=== PATIENT | female | born 1965 | race Caucasian/White ===

== ENCOUNTER 2016-09-12 17:01 | Emergency (ER) | payer OTHER, MEDICARE ==
[~2016-09-12] VITALS: Ht 170.2 cm; Wt 70.3 kg
[~2016-09-12 17:01] MED LIST: AMOXICILLIN500 M3 PO; AMOXIL500 MG PO; AUGMENTIN 875-1 EACH PO; BACTRIM DS TAB1 EACH PO; ERYTHROMYCIN1 GM OPH; KEFLEX 250MG C250 MG PO; PREDNISONE 20MG20 MG PO
--- NOTE | 2016-09-12 18:01 | ED HAND/WRIST INJURY COMPLAINT ---
History of Present Illness General Chief Complaint: Hand or Wrist Injury Stated Complaint: FINGER INJURY EAT AND TOOTH PAIN Vital Signs & Intake/Output Vital Signs & Intake/Output Vital Signs Date Time Temp Pulse Resp B/P Pulse O2 O2 Flow FiO2 Ox Delivery Rate 09/12 1709 98.6 75 20 130/84 96 Room Air Allergies Coded Allergies: NO KNOWN ALLERGIES (09/12/16) Reconcile Medications Amoxicillin 500 MG TABLET 1 TAB PO TID CELULITIS Amoxicillin (Amoxil) 500 MG CAP 1 TAB PO BID CELLULITIS Amoxicillin/Potassium Clav (Augmentin 875-125 Tablet) 875 MG-125 MG TABLET 1 TAB PO BID periorbital cellulitis Cephalexin (Keflex 250MG Cap) 250 MG CAPSULE 1 CAP PO TID CELLULITIS Erythromycin Base (Erythromycin) 5 MG/GRAM (0.5 %) OINT...G. 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 ALSO HERE FOR R DENTAL PAIN WHICH RADIATES INTO R EAR. ALSO COMPLAINS OF PAINFUL BUMP TO RT WRIST X 2-3 DAYS S/P BUMPING IT ON THE METAL FRAME OF HER BED. MEDICATED WITH TYLENOL AT TRIAGE PER PT REQUEST. 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
--- NOTE | 2016-09-12 18:15 | ED GENERAL ADULT ---
History of Present Illness General Chief Complaint: Hand or Wrist Injury Stated Complaint: FINGER INJURY EAT AND TOOTH PAIN Source: patient Exam Limitations: no limitations Vital Signs & Intake/Output Vital Signs & Intake/Output Vital Signs Date Time Temp Pulse Resp B/P Pulse O2 O2 Flow FiO2 Ox Delivery Rate 09/12 2007 98.6 76 18 124/73 97 Room Air 09/12 1913 Room Air 09/12 1709 98.6 75 20 130/84 96 Room Air ED Intake and Output 09/13 0000 09/12 1200 Intake Total 0 Output Total Balance 0 Intake, Oral 0 Patient 155 lb Weight Allergies Coded Allergies: NO KNOWN ALLERGIES (09/12/16) Reconcile Medications Amoxicillin 500 MG TABLET 1 TAB PO TID CELULITIS Amoxicillin (Amoxil) 500 MG CAP 1 TAB PO BID CELLULITIS Amoxicillin/Potassium Clav (Augmentin 875-125 Tablet) 875 MG-125 MG TABLET 1 TAB PO BID periorbital cellulitis Cephalexin (Keflex 250MG Cap) 250 MG CAPSULE 1 CAP PO TID CELLULITIS Erythromycin Base (Erythromycin) 5 MG/GRAM (0.5 %) OINT...G. 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 ALSO HERE FOR R DENTAL PAIN WHICH RADIATES INTO R EAR. ALSO COMPLAINS OF PAINFUL BUMP TO RT WRIST X 2-3 DAYS S/P BUMPING IT ON THE METAL FRAME OF HER BED. MEDICATED WITH TYLENOL AT TRIAGE PER PT REQUEST. Triage Nurses Notes Reviewed? yes Onset: Just prior to arrival Duration: day(s): (1) Timing: no prior history Injury Environment: home Severity: moderate Severity Numbers: 7 Modifying Factors: Improves With: immobilization. Worsens With: movement. HPI: Patient is a 51-year-old female presenting to the emergency Department chief complaint of left ring finger pain, deformity after getting it twisted in her dogs leash prior to arrival. Pain is moderate achy throbbing worsened range of motion and palpation. Also reporting right wrist pain since the injury as well. Denies any actual falls. She reports that her right wrist twisted. Pain is moderate achy throbbing. Currently 7 out of 10. Nonradiating. Worse with movement. Denies taking anything prior to arrival to help with pain. Denies numbness or tingling. Denies nausea vomiting fevers or chills chest pain or shortness of breath. Also reporting exacerbation of chronic dental pain. She is due to have several teeth removed. Denies fevers or chills. No swelling in the mouth. (ZURI LAURENT) Past History Travel History Traveled to [place] past 21 day No Medical History Any Pertinent Medical History? 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 No (ZURI LAURENT) Review of Systems Review of Systems Constitutional: Reports: no symptoms. Comments Review of systems: See HPI, All other systems negative. Constitutional, no chills fever or weight loss HEENT: No visual changes no sore throat no congestion Cardiovascular: No chest pain ,palpitation , orthopnea or ankle swelling Skin, no jaundice no rashes Respiratory: No dyspnea cough sputum or hemoptysis GI: No nausea no vomiting Muscle skeletal: no back pain, no neck pain, Neurologic: No numbness no confusion Psych: No stress anxiety Immunology: No splenectomy or history of AIDS (ZURI LAURENT) Physical Exam Physical Exam General Appearance: well developed/nourished, no apparent distress, alert, awake , comfortable Comments: Well-developed well-nourished person in no acute distress HEENT: Pupils equally round and reactive to light and accommodation. Nose is atraumatic. Pharynx normal. No swelling or edema. Poor dentition. No obvious signs of dental infection. No gum erythema. Neck: Supple, no lymphadenopathy, normal range of motion without pain or tenderness Back: Nontender, no CVA tenderness. Full range of motion Cardiovascular: normal JVP Respiratory: No respiratory distress. Extremity: Obvious deformity to left ring finger. Tender to palpation throughout the entire finger. Limited range of motion to the left ring finger secondary to pain. Capillary refill is intact in upper extremities bilaterally. Pain to palpation over the distal radius on the right. No snuffbox tenderness bilaterally. Radial pulses are 2+ bilaterally. Neuro: Alert oriented x3, motor sensory normal Skin: No appreciable rash on exposed skin, skin is warm and dry. Psych: Mood and affect is normal, memory and judgment is normal. Core Measures ACS in differential dx? No CVA/TIA Diagnosis: No Severe Sepsis Present: No Septic Shock Present: No (MANNIE SILVA,ZURI) Progress Differential Diagnoses I considered the following diagnoses in my evaluation of the patient: Finger fracture, finger dislocation, contusion, chronic dental pain, wrist pain Plan of Care: Orders Procedure Date/time Status XRY-FINGERS, LEFT 09/12 1911 Active Diagnostic Imaging: Viewed by Me: Radiology Read. Discussed w/RAD: Radiology Read. Radiology Impression: PATIENT: JOSE MANUEL MEJIA PRESENT AGE: 51 PATIENT ACCOUNT NO: [id number] : 66 LOCATION: [facility] ORDERING PHYSICIAN: ZURI SILVA SERVICE DATE: 09/12/16 EXAM TYPE: RAD - XRY-FINGERS, LEFT EXAMINATION: XR FINGER, LEFT CLINICAL INFORMATION: Status post reduction COMPARISON: X-ray left finger also dated 09/12/2016. TECHNIQUE: Three views of the left fourth finger. FINDINGS: There has been interval reduction of the previously seen dislocation of the PIP joint. Improved and normal alignment. A subtle ossific density noted dorsal to the base of the middle phalanx may represent a subtle avulsion fracture. IMPRESSION: Interval reduction PIP joint left fourth finger. Normal alignment. Subtle tiny avulsion fracture suspected dorsal aspect base of the middle phalanx fourth finger., PATIENT: JOSE MANUEL MEJIA PRESENT AGE: 51 PATIENT ACCOUNT NO: [id number] : 66 LOCATION: [facility] ORDERING PHYSICIAN: ZURI SILVA SERVICE DATE: 09/12/16 EXAM TYPE: RAD - XRY-FINGERS, LEFT; XRY-WRIST COMPLETE-RIGHT EXAMINATION: XR FINGER, LEFT X-RAY WRIST, RIGHT CLINICAL INFORMATION: Evaluate for fracture or dislocation. COMPARISON: None TECHNIQUE: 3 views of the left fourth finger and 4 views of the right wrist FINDINGS: LEFT FOURTH FINGER There is complete dislocation noted at the PIP joint fifth finger with the base of the middle phalanx anterior to the head of the proximal phalanx. No obvious fracture identified. Subcortical cystic changes noted in the triquetrum. Degenerative changes first CMC joint. RIGHT WRIST Normal bony mineralization. No evidence of acute fracture or dislocation. Degenerative changes first CMC joint with osteophyte formation and subcortical cystic change. IMPRESSION: 1. Complete dislocation PIP joint fourth finger. 2. No acute osseous abnormality right wrist. Degenerative changes with subcortical cyst formation first CMC joint. Initial ED EKG: none Comments: Spoke with Dr. Grove who will follow-up with the patient outpatient. Patient educated on keeping the splint on. She will return for worsening symptoms or concerns. (ZURI LAURENT) Departure Departure Time of Disposition: 1944 Disposition: HOME OR SELF CARE Condition: Stable Clinical Impression Primary Impression: Finger fracture Qualifiers: Encounter type: initial encounter Finger: unspecified finger Fracture type: closed Phalanx: distal Fracture alignment: nondisplaced Qualified Code: S62.669A - Nondisplaced fracture of distal phalanx of unspecified finger, initial encounter for closed fracture Secondary Impressions: Finger dislocation Qualifiers: Encounter type: initial encounter Qualified Code: S63.259A - Unspecified dislocation of unspecified finger, initial encounter Pain, dental Referrals: PATIENT HAS NO PRIMARY CARE DR (PCP/Family) HENRIETTA GROVE MD Additional Instructions: Follow-up with Dr. Grove. Wear splint until follow-up. Take tramadol as prescribed. Rest ice and elevate the finger. Return for worsening symptoms or concerns. Do not take the splint off no matter what. Departure Forms: Customer Survey General Discharge Information Prescriptions: Current Visit Scripts Tramadol HCl 1 TAB PO BIDP PRN PAIN #10 TAB (ZURI LAURENT) PA/CRO Co-Sign Statement Statement: ED Attending supervision documentation- [] I saw and evaluated the patient. I have also reviewed all the pertinent lab results and diagnostic results. I agree with the findings and the plan of care as documented in the PA's/CRO's documentation. [x] I have reviewed the ED Record and agree with the PA's/CRO's documentation. [] Additions or exceptions (if any) to the PAs/CRO's note and plan are summarized below: [] (DARY WONG,MARLON Ramachandran) Procedures Splinting Location: left ring finger Manual Alignment Performed: Yes Pre-Made Type: metal Splint: finger Splint Applied By: splint applied by me Pre-Proc Neuro Vasc Exam: normal Post-Proc Neuro Vasc Exam: normal Progress: Patient tolerated procedure well. Joint Reduction Joint Reduction Site: left ring finger Conscious Sedation: performed by me Reduction Attempts: 1 Pre-Procedure NV Exam: Yes Post-Procedure NV Exam: Yes Post Joint Reduction Film: joint reduced Progress: Digital block performed on left ring finger, 4 mL of 1% lidocaine without epi to anesthetize the area. Gentle traction until reduction complete. (ZURI LAURENT) Critical Care Note Critical Care Note Critical Care Time: non-applicable (ZURI LAURENT)
--- NOTE | 2016-09-12 18:55 | RADIOLOGY REPORT ---
EXAMINATION: XR FINGER, LEFT X-RAY WRIST, RIGHT CLINICAL INFORMATION: Evaluate for fracture or dislocation. COMPARISON: None TECHNIQUE: 3 views of the left fourth finger and 4 views of the right wrist FINDINGS: LEFT FOURTH FINGER There is complete dislocation noted at the PIP joint fifth finger with the base of the middle phalanx anterior to the head of the proximal phalanx. No obvious fracture identified. Subcortical cystic changes noted in the triquetrum. Degenerative changes first CMC joint. RIGHT WRIST Normal bony mineralization. No evidence of acute fracture or dislocation. Degenerative changes first CMC joint with osteophyte formation and subcortical cystic change. IMPRESSION: 1. Complete dislocation PIP joint fourth finger. 2. No acute osseous abnormality right wrist. Degenerative changes with subcortical cyst formation first CMC joint.
[2016-09-12] MEDS ORDERED: TRAMADOL HCL50 M1 PO (19:47)
--- NOTE | 2016-09-12 19:54 | RADIOLOGY REPORT ---
EXAMINATION: XR FINGER, LEFT CLINICAL INFORMATION: Status post reduction COMPARISON: X-ray left finger also dated 09/12/2016. TECHNIQUE: Three views of the left fourth finger. FINDINGS: There has been interval reduction of the previously seen dislocation of the PIP joint. Improved and normal alignment. A subtle ossific density noted dorsal to the base of the middle phalanx may represent a subtle avulsion fracture. IMPRESSION: Interval reduction PIP joint left fourth finger. Normal alignment. Subtle tiny avulsion fracture suspected dorsal aspect base of the middle phalanx fourth finger.
[2016-09-12 20:08] VITALS: BP 124/73
== END 2016-09-12 20:09 ==
LOC: ERH 17:01
DX: S62.625A Displaced fracture of middle phalanx of left ring finger, initial encounter for closed fracture (principal); S63.255A Unspecified dislocation of left ring finger, initial encounter; X58.XXXA Exposure to other specified factors, initial encounter
CPT/HCPCS: 73110-RT; 73140-LT; 96372; J1885

== ENCOUNTER 2017-09-12 22:46 | Emergency (ER) | payer OTHER ==
[~2017-09-12 22:46] MED LIST changes: +KEFLEX500 M1 PO; +NAPROSYN500 M1 PO; +TRAMADOL HCL50 M1 PO
[2017-09-12 22:52] VITALS: BP 146/82
[2017-09-13] MEDS ORDERED: IBUPROFEN600 M1 PO (00:23)
[2017-09-13] MEDS ORDERED: PERCOCET 5-3251 EACH PO (00:23)
--- NOTE | 2017-09-13 00:25 | ED UPPER/LOWER EXTREMITY COMPL ---
History of Present Illness General Chief Complaint: Lower Extremity Problems Stated Complaint: "FOR VERICOSE VEIN ITS ACTING UP" Source: patient, old records, friend Exam Limitations: no limitations Vital Signs & Intake/Output Vital Signs & Intake/Output Vital Signs Date Time Temp Pulse Resp B/P B/P Pulse O2 O2 Flow FiO2 Mean Ox Delivery Rate 09/122 98.3 78 20 146/82 96 ED Intake and Output 09/13 0000 09/12 1200 Intake Total Output Total Balance Patient 155 lb Weight Allergies Coded Allergies: NO KNOWN ALLERGIES (09/12/16) Reconcile Medications Cephalexin (Keflex) 500 MG CAPSULE 1 CAP PO TID INFECTION Ibuprofen 600 MG TABLET 1 TAB PO Q6PRN PRN pain with food Naproxen (Naprosyn) 500 MG TABLET 1 TAB PO BID PRN PAIN Oxycodone HCl/Acetaminophen (Percocet 5-325 MG Tablet) 5 MG-325 MG TABLET 1 TAB PO Q6P PRN severe pain Core Measure Meds Pre-Hospital antibiotics Triage Note: PER PT "BULGING VARICOSE VEIN TO RT UPPER THIGH' PER PT RED AND BURNING Triage Nurses Notes Reviewed? yes Onset: Last week Duration: day(s):, constant, continues in ED Timing: recent history Severity: moderate, severe Pain/Injury Location: Right: Thigh. Modifying Factors: Improves With: immobilization, pain medication, rest. Worsens With: jarring. Associated Symptoms: swelling, redness, GCS 15 since LMP (ages 10-50): post menopausal : No Patient currently breastfeeds: No HPI: One week prior to admission patient complains of increasing redness sharp pain to right thigh varicose veins. She's been seen and prescribed cephalexin and Naprosyn with continued pain. She reports having diarrhea since being on the cephalexin improved with over-the -counter medication. She denies fever chills nausea vomiting diarrhea abdominal pain chest pain shortness breath headache dysuria bleeding. Past History Travel History Traveled to [place] past 21 day No Medical History Any Pertinent Medical History? 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 No Review of Systems Review of Systems Constitutional: Reports: no symptoms. EENTM: Reports: no symptoms. Respiratory: Reports: no symptoms. Cardiovascular: Reports: no symptoms. Gastrointestinal/Abdominal: Reports: no symptoms. Genitourinary: Reports: no symptoms. Musculoskeletal: Reports: see HPI. Skin: Reports: see HPI. Neurological/Psychological: Reports: no symptoms. Hematologic/Endocrine: Reports: no symptoms. Immunological: Reports: no symptoms. All Other Systems: Reviewed and Negative Physical Exam Physical Exam General Appearance: well developed/nourished, alert, awake, anxious, mild distress Head: atraumatic Eyes: Bilateral: PERRL, EOMI. Ears, Nose, Throat: normal pharynx, normal ENT inspection, hearing grossly normal Neck: normal inspection, supple Cardiovascular/Respiratory: regular rate/rhythm Peripheral Pulses: 4+ carotid (R), 4+ carotid (L) Back: normal inspection, normal range of motion, no vertebral tenderness Shoulder Left: normal range of motion, normal inspection Shoulder Right: normal range of motion, normal inspection Elbow Left: normal range of motion, normal inspection Elbow Right: normal range of motion, normal inspection Hand Left: normal inspection, normal range of motion Hand Right: normal inspection, normal range of motion Upper Extremity Reflexes: 2+: bicep (R), bicep (L). Leg Left: normal range of motion, varicose veins Leg Right: normal range of motion, erythema overlying varicose veins of thigh with tenderness Hip Left: normal range of motion, normal inspection Hip Right: normal range of motion, normal inspection Knee Left: normal range of motion, normal inspection Knee Right: normal range of motion, normal inspection Foot Left: normal inspection, normal range of motion Foot Right: normal inspection, normal range of motion Lower Extremity Reflexes: 2+: knee (R), knee (L). Neurologic/Tendon: normal sensation, normal motor functions, normal tendon functions Skin: intact, warm/dry, rash Lymphatic: no anterior cervical anant Progress Differential Diagnosis: superficial thrombophlebitis, varicose vein discomfort Plan of Care: Current Medications Sig/Damien Start time Last Medication Dose Stop Time Status Admin Ibuprofen 600 MG ONCE ONE 09/13 29 AC (Motrin) 09/13 30 Oxycodone/ 1 TAB ONCE ONE 09/13 29 AC Acetaminophen 09/13 30 (Percocet) Departure Departure Time of Disposition: 21 Disposition: HOME OR SELF CARE Condition: Stable Clinical Impression Primary Impression: Varicose veins of leg with pain Secondary Impressions: Superficial thrombophlebitis of right leg Referrals: Unknown (PCP/Family) Additional Instructions: Decrease cephalexin to 2 times a day Departure Forms: Customer Survey General Discharge Information Prescriptions: Current Visit Scripts Ibuprofen 1 TAB PO Q6PRN PRN pain #50 TAB with food Oxycodone HCl/Acetaminophen (Percocet 5-325 MG Tablet) 1 TAB PO Q6P PRN severe pain #15 TAB
== END 2017-09-13 00:32 ==
LOC: ERH 22:46
DX: I83.011 Varicose veins of right lower extremity with ulcer of thigh (principal); I80.01 Phlebitis and thrombophlebitis of superficial vessels of right lower extremity

== ENCOUNTER → 2017-09-25 | Day surgery (SDC) | payer OTHER, MEDICARE ==
[~2017-09-25] VITALS: Ht 170.2 cm; Wt 61.7 kg
[~2017-09-25] MED LIST changes: +IBUPROFEN600 M1 PO; +PERCOCET 5-3251 EACH PO
--- NOTE | 2017-09-25 09:08 | Operative Report ---
Operative/Inv Procedure Report Surgery Date: 09/25/17 Name of Procedure: Excision left buttocks lipoma, 14 x 11 cm, superficial Pre-Operative Diagnosis: Lipoma Post-Operative Diagnosis: Lipoma Estimated Blood Loss: scant Surgeon/Shell Worker: Sammy White MD Anesthesia: local monitored anesthesi Drains: None Specimens: Lipoma Operative Indication: 52-year-old woman with growing mass on her buttocks presents for resection Operative/Procedure Note Note: After consent patient brought to the operating room prone. Sedation was obtained and her left buttocks was prepped and draped. Skin overlying the mass was treated with a cocktail local anesthesia. Longitudinal incision was made through Jerrod's lines. [place] of his tissues with cautery. The lipoma was encountered and circumferentially dissected with cautery and blunt dissection. It was passed off the field. The wound was irrigated with normal saline. The incision was then closed in 2 layers of 3-0 and 4-0 Vicryl. Steri-Strips and sterile dressing applied. Sponge and needle counts are correct CC: Elyssa Agarwal APRN
== END ==
LOC: STS 03:20
DX: D17.1 Benign lipomatous neoplasm of skin and subcutaneous tissue of trunk (principal)
CPT/HCPCS: 81025; 88304; J0131; J2250